=== PATIENT | male | born 1980 | race Caucasian/White ===

== ENCOUNTER 2017-01-16 11:58 | Emergency (ER) | payer OTHER ==
[2017-01-16 14:28] VITALS: BP 125/81
--- NOTE | 2017-01-16 14:36 | UC ---
Back Pain HPI - HPI Summary HPI Summary: complaint of lower back pain that started approx 1 year ago in the last few weeks pain has slowly increased the last 2 days pain has increased constant aching pain that radiates into buttocks any movement increases the pain in his lower back sitting lessens the pain has tired heat and icing without relief acetaminophen or ibuprofen without relief denies trauma denies fever and incontinence concerned that 30 pound weight gain since starting hypothyroidsm started levthyroxine but has gained weight in his torso - History of Current Complaint Chief Complaint: UCGeneralIllness Stated Complaint: LOWER BACK PAIN Time Seen by Provider: 01/16/17 14:20 Hx Obtained From: Patient - Allergies/Home Medications Allergies/Adverse Reactions: Allergies Allergy/AdvReac Type Severity Reaction Status Date / Time No Known Allergies Allergy Verified 01/16/17 14:20 Home Medications: Home Medications DULoxetine DR CAP* [Cymbalta CAP*] 60 mg PO DAILY 01/16/17 [History Confirmed ] Levothyroxine TAB* [Synthroid TAB*] 25 mcg PO DAILY 01/16/17 [History Confirmed 01/16/17] cloNIDine TAB* [Catapres 0.1 MG TAB*] 0.1 mg PO TID 01/16/17 [History Confirmed 01/16/17] PMH/Surg Hx/FS Hx/Imm Hx Previously Healthy: Yes Endocrine History Of: Reports: Thyroid Disease - Hypothyroidism Cardiovascular History Of: Reports: Hypertension GI/ History Of: Reports: Gastroesophageal Reflux Psychological History Of: Reports: Anxiety Other History Of: Hepatitis C - Surgical History Surgical History: None - Family History Known Family History: Negative: Cardiac Disease, Hypertension, Diabetes Family History: no known cardio vascular disorders in family - Social History Occupation: Unemployed Lives: With Family Alcohol Use: None Substance Use Type: None Substance Use Comment - Amount & 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 08/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 Smoking Status (MU): Heavy Every Day Tobacco Smoker Type: Cigarettes Amount Used/How Often: 1 1/2 PPD Have You Smoked in the Last Year: Yes Cessation Counseling: Patient Advised to Stop - Immunization History Most Recent Influenza Vaccination: Not the 2016/2016 Season Review of Systems Constitutional: Negative Skin: Negative Eyes: Negative ENT: Negative Respiratory: Negative Cardiovascular: Negative Gastrointestinal: Negative Genitourinary: Negative Motor: Negative Neurovascular: Negative Musculoskeletal: Other: - lower back pain Neurological: Negative Psychological: Negative All Other Systems Reviewed And Are Negative: Yes Physical Exam Triage Information Reviewed: Yes Appearance: No Pain Distress, Well-Nourished Vital Signs: Initial Vital Signs Temp 97.9 F 01/16/17 14:15 Pulse 84 01/16/17 14:15 Resp 16 01/16/17 14:15 BP 125/81 01/16/17 14:15 Pulse Ox 98 01/16/17 14:15 Vital Signs Reviewed: Yes Eyes: Positive: Conjunctiva Clear Neck: Positive: No Lymphadenopathy Respiratory: Positive: Lungs clear, Normal breath sounds, No respiratory distress Cardiovascular: Positive: RRR, No Murmur Abdomen Description: Positive: Nontender, Soft, Distended Bowel Sounds: Positive: Present Musculoskeletal: Positive: No Edema, Other: - full ROM paraspinal tenderness in lumbar area no pian with percussion of spine Neurological: Positive: Alert, Other: - DTR intact negative SLR Psychological Exam: Normal Skin Exam: Normal Back Pain Course/Dx - Course Course Of Treatment: exam completed. no red flags to warrant imaging. will refer to PT for further evaluation and treatment , NSAIDS only. currently taking suboxone -no muscle relaxre rx - Differential Dx/Diagnosis Differential Diagnosis/HQI/PQRI: Herniated Disc, Strain, Sprain Provider Diagnoses: lower back pain Discharge - Discharge Plan Condition: Stable Disposition: HOME Patient Education Materials: Low Back Strain (ED) Referrals: YISEL Pérez [Primary Care Provider] - Additional Instructions: Please call physical therapy for further evaluation and treatment. Take ibuprofen for fever or pain. Increase fluids and rest. Please review your discharge instructions. If your symptoms do not improve please call your primary care provider or return to urgent care. Treatment Recommendations: Limit activities and avoid strenuous physical activity completely. The more active you are, the longer it will take your back to feel better. Staying in bed is not good because it weakens muscles. Lie or sleep on a firm surface. Do not sleep on your stomach. Sleep on your side with a pillow between your knees, or on your back with a pillow under your knees. Avoid positions and movements that cause pain or make your pain worse. Mild heat or ice applied to the back can sometimes be helpful. Use for 15 to 30 minutes several times a day. Ice is usually most helpful during the first day or two after an injury, and heat may be helpful after that. If you use a heating pad it should always be on the lowest setting. If sitting for long periods of time, raise the hips slightly higher than the knees by placing a slender pillow under the hips. Always support the lower curve of your back with another pillow. If you have to stand a lot try to put one foot on a low stool. Change your position during the day by doing tasks both standing and sitting; take frequent breaks. Learn how to lift, reach, push, and pull correctly. Let your legs do most of the lifting. Lift by bending at the knees, rather than at the waist, and keep your back straight. Avoid heavy lifting.
[2017-01-16] MEDS ORDERED: Ketorolac INJ* 60 MG/2 ML VIAL IM ONE (14:52)
== END 2017-01-16 15:32 | disposition home or self-care (01) ==
LOC: UCCORT 11:58
DX: M54.5 Low back pain (principal); E03.9 Hypothyroidism, unspecified; I10 Essential (primary) hypertension; F17.210 Nicotine dependence, cigarettes, uncomplicated
CPT/HCPCS: 96372; 99212; G0463; J1885

== ENCOUNTER 2019-09-09 10:28 | Day surgery (SDC) | payer OTHER ==
[~2019-09-09 10:28] MED LIST: Buffered Lidocaine 1% SYRIN* 1 ML/SYRINGE INTRADERM ONE; Dexamethasone IV* 4 MG/ML 1 ML (4 MG) IV SLOW PU ONE; Famotidine IV* 10 MG/ML 2 ML (20 mg) IV ONE; Lactated Ringers 1000 ML Bag* 1,000 ML IV SCH
[2019-09-09] MEDS ORDERED: Famotidine IV* 10 MG/ML 2 ML (20 mg) ONE (10:43)
[2019-09-09] MEDS ORDERED: ceFAZolin 2 GM PREMIX in ORs 2 GM/50 ML BAG ONE (10:44)
[2019-09-09] MEDS ORDERED: Metoclopramide IV* 5 MG/ML 2 ML VIAL ONE (10:52)
[2019-09-09] MEDS ORDERED: Lidocaine 1% MPF* 2 ML VIAL ONE ×3 (12:55→12:58)
[2019-09-09] MEDS ORDERED: Betamethasone INJ* 6 MG/ML 5 ML VIAL (30 MG) ONE ×3 (12:56→12:58)
[2019-09-09] MEDS ORDERED: fentaNYL* 50 MCG/ML 2 ML VIAL (100 MCG VIAL) ONE (13:00)
[2019-09-09] MEDS ORDERED: Midazolam* 1 MG/ML 2 ML VIAL (2 MG) ONE (13:00)
[2019-09-09] MEDS ORDERED: Propofol* 10 MG/ML 20 ML BTL ONE (13:01)
[2019-09-09] MEDS ORDERED: Bupivacaine 0.25% SDV* 30 ML ONE (13:05)
[2019-09-09] MEDS ORDERED: Naloxone* 0.4 MG/ML 1 ML VIAL IV PRN (14:45)
[2019-09-09] MEDS ORDERED: fentaNYL* 50 MCG/ML 2 ML VIAL (100 MCG VIAL) IV PRN (14:45)
[2019-09-09] MEDS ORDERED: Ketorolac INJ* 30 MG/ML 1 ML VIAL IV PRN (14:45)
[2019-09-09] MEDS ORDERED: Ondansetron INJ* 2 MG/ML VIAL IV SCH (15:00)
[2019-09-09] MEDS ORDERED: Ondansetron INJ* 2 MG/ML VIAL ONE (15:05)
[2019-09-09] MEDS ORDERED: Ketorolac INJ* 30 MG/ML 1 ML VIAL ONE (15:05)
[2019-09-09 15:31] VITALS: BP 105/82
--- NOTE | 2019-09-09 21:43 | OP ---
DATE OF OPERATION: 09/09/19 [facility] DATE OF : 84 SURGEON: Salvador Looney MD [employer] INSTRUCTOR: MARLO Jean. An child center assistant was needed for the procedure to aid in positioning of the arm and retraction. ANESTHESIOLOGIST: Dr. Koch. ANESTHESIA: Local MAC. PRE-OP DIAGNOSES: 1. 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 2. Right ring finger proximal interphalangeal joint synovitis. 3. Right middle finger proximal interphalangeal joint synovitis. 4. Left wrist de Quervain's with tendon sheath nodule. 5. Left flexor carpi radialis tendinitis with tendon sheath nodule. POST-OP DIAGNOSES: 1. 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 2. Right ring finger proximal interphalangeal joint synovitis. 3. Right middle finger proximal interphalangeal joint synovitis. 4. Left wrist de Quervain's with tendon sheath nodule. 5. Left flexor carpi radialis tendinitis with tendon sheath nodule. OPERATIVE PROCEDURE: 1. Left middle finger excision of dorsal PIP joint rheumatoid nodules. 2. Left middle finger PIP joint corticosteroid injection. 3. Left de Quervain's release. 4. Left first dorsal compartment tendon sheath nodule excision. 5. Left flexor carpi radialis tendon debridement with tendon sheath nodule excision. 6. Right ring finger PIP joint steroid injection. 7. Right middle finger PIP joint steroid injection. INDICATIONS: Mr. Zee has aforementioned conditions. The nodules are quite large. He has synovitis. He is looking to see if he can get some relief and to get the nodules excised. I talked to him about risks including the risk of neurovascular injury and recurrence as well as the need for good medical management of this condition. He agrees and understands and wishes to proceed. ESTIMATED BLOOD LOSS: 2 mL. COMPLICATIONS: None. FINDINGS: See above and below. DESCRIPTION OF PROCEDURE: Mr. Zee was seen in the preoperative holding area. The correct site, side, and procedures were identified. We came back to the operating room. The arm was prepped and draped in the usual fashion and a time-out was performed. Before draping and after anesthetizing the left-sided operative areas, I did go over and inject first the right middle finger PIP joint with 1 mL of 1% lidocaine and 6 mg of betamethasone. I then injected the right ring finger PIP joint with 1 mL of 1% lidocaine and 6 mg of betamethasone. Band-Aids were applied to both injection sites. After we had our surgical time-out, I went ahead and made a curvilinear incision over the dorsum of the left middle finger PIP joint. Full-thickness flap was raised off the nodules. The extensor tendon was identified distal and proximal to that. I came in distally and excised the entirety of the rheumatoid nodule taking right off the extensor tendon. This was emanating between the central slip and the lateral band on both the radial and ulnar aspects. I went ahead and cleaned off that interval and did a little bit of a synovectomy in the joint. Once I had fully excised the nodules and cleaned up the joint, I irrigated out the wound, I placed a couple of a 4-0 PDS sutures in the space where the nodule had been between the central slip and the conjoined lateral band. The wound was irrigated out, skin was closed with 4-0 nylon suture. I then injected 1 mL of 1 % lidocaine and 6 mg of betamethasone into the left middle finger PIP joint. I then made a 2-cm transverse incision over the radial styloid. Dissection was carried down. Full-thickness flaps were raised off the tendon sheath. Ragnell retractors were placed. There was a large nodule emanating off the tendon sheath on the volar distal aspect. I went ahead and excised that and sent that off as a specimen. I then released the first dorsal compartment tendon sheath along the dorsal margin and release was completed distally and proximally with the tenotomy scissors. There was a little bit of tenosynovitic tissue around the tendons that was all excised. Lastly, I made a V-shaped incision and raised an ulnarly based flap off the distal FCR tendon sheath just near the area of the scaphoid tubercle. Dissection was carried down. Neurovascular structures were preserved. I placed retractors and I was able to isolate that large anterior FCR tendon sheath nodule. That was excised in its entirety. I went ahead and released the little bit of the sheath proximal and distal to that. Once I had fully excised that nodule and everything was looking good, I irrigated out the wound. I went ahead and placed a little bit of betamethasone around both the FCR tendon and the first dorsal compartment tendons. The wounds were closed with 4- 0 nylon. Everything was dressed with soft dressings. He was taken to the recovery room in stable condition. [id number]/[facility] #: [id number] NKECHI
== END 2019-09-09 15:25 | disposition home or self-care (01) ==
LOC: OREAST 10:28
PROVIDERS: ATTEND Orthopaedic Surgery Hand Surgery
DX: M06.342 Rheumatoid nodule, left hand (principal); M65.4 Radial styloid tenosynovitis [de Quervain]; M65.842 Other synovitis and tenosynovitis, left hand; M65.841 Other synovitis and tenosynovitis, right hand; M05.1 Rheumatoid lung disease with rheumatoid arthritis; I10 Essential (primary) hypertension; F17.210 Nicotine dependence, cigarettes, uncomplicated; E03.9 Hypothyroidism, unspecified; F41.8 Other specified anxiety disorders; E11.9 Type 2 diabetes mellitus without complications; Z79.84 Long term (current) use of oral hypoglycemic drugs; F10.11 Alcohol abuse, in remission
CPT/HCPCS: 88304; J0690; J0702; J1885; J2250; J2405; J2704; J2765; J3010; J3490

== ENCOUNTER 2019-11-15 11:37 | Day surgery (SDC) | payer OTHER ==
[2019-11-15] MEDS ORDERED: ceFAZolin 2 GM in NS PREMIX(*) 2 GM/100 ML BAG IVPB ONE (13:47)
[2019-11-15] MEDS ORDERED: Bupivacaine 0.25% SDV* 30 ML ONE (13:51)
[2019-11-15] MEDS ORDERED: Propofol* 10 MG/ML 20 ML BTL ONE (13:52)
[2019-11-15] MEDS ORDERED: Ketorolac INJ* 30 MG/ML 1 ML VIAL ONE (13:52)
[2019-11-15] MEDS ORDERED: Midazolam* 1 MG/ML 5 ML VIAL (5 MG) ONE (13:55)
[2019-11-15] MEDS ORDERED: Ondansetron INJ* 2 MG/ML VIAL IV PRN (14:08)
[2019-11-15] MEDS ORDERED: Acetaminophen IV 1GM/100ML * 1,000 MG/100 ML VIAL IVPB ONE ×2 (14:08→14:39)
[2019-11-15] MEDS ORDERED: Naloxone* 0.4 MG/ML 1 ML VIAL IV PRN ×2 (14:08→14:23)
[2019-11-15 15:29] VITALS: BP 130/88
--- NOTE | 2019-11-15 22:57 | OP ---
DATE OF OPERATION: 11/15/19 [facility] DATE OF : 84 SURGEON: Salvador Looney M.D. MECHANICAL REPAIR WORKER: MARLO Jean ANESTHESIOLOGIST: Dr. Brar. ANESTHESIA: Local MAC. PRE-OP DIAGNOSIS: Left middle finger postoperative draining wound. POST-OP DIAGNOSIS: Left middle finger postoperative draining wound. OPERATIVE PROCEDURE: Irrigation and debridement of infected left middle finger surgical wound with excision of sinus tract. INDICATIONS: Mr. Zee underwent the aforementioned surgery. All the wounds have healed up good except for the left middle finger wound over the dorsum of the PIP joint. I saw him back once for his immediate postop visit and then he missed an appointment, then he came back to see me last Friday and he developed a chronically draining wound. He does not have any evidence of a joint infection. He has full range of motion of the joint with minimal pain, but the wound has a little bit of seropurulent drainage from the central aspect and it looked like he has a sinus tract there. We talked him about treatment options, risks and benefits. I told him that I thought we had to clean it up and reclose the wound and start him on some antibiotics. He agrees and wishes to proceed. EBL: 2 mL. COMPLICATIONS: None. FINDINGS: See above and below. DESCRIPTION OF PROCEDURE: Mr. Zee was seen in the preoperative holding area. The correct site, side, and procedures were identified. We came back to the operating room where a digital block was performed with 0.25% plain Marcaine. The arm was then prepped and draped in the usual fashion and a time- out was performed. I went ahead and reopened his prior wound there proximally and distally, and then I ellipsed out the sinus tract. The skin portion was removed. I then used a 69 Springhill blade to marginally excise the sinus tract all the way down to the bone. It came down deep to the extensor tendon and was sitting right on the dorsum of the middle phalanx there. I took some time that I went ahead and cleaned up the area around the sinus tract. I used a Springhill blade followed by the curettes and rongeur. Once that everything completely cleaned and looked really good, there was not any evidence of continuity down into the joint. A small little arthrotomy was made just to make sure and the joint looked fine. The wound was irrigated out. The skin was closed with 4-0 nylon suture. Wound was dressed. He was placed in an AlumaFoam splint to hold that PIP joint in extension while the wound heals up. Tourniquet was deflated. The finger pinked up immediately. He was taken to the recovery room in stable condition. [id number]/[facility] [place] #: [id number] NKCEHI
== END 2019-11-15 15:32 | disposition home or self-care (01) ==
LOC: OR 11:37
PROVIDERS: ATTEND Orthopaedic Surgery Hand Surgery
DX: T81.41XA Infection following a procedure, superficial incisional surgical site, initial encounter (principal); I10 Essential (primary) hypertension; M19.90 Unspecified osteoarthritis, unspecified site; E11.9 Type 2 diabetes mellitus without complications; Z79.84 Long term (current) use of oral hypoglycemic drugs; F41.8 Other specified anxiety disorders; F17.210 Nicotine dependence, cigarettes, uncomplicated; F10.21 Alcohol dependence, in remission; F19.11 Other psychoactive substance abuse, in remission
CPT/HCPCS: 87070; 87073; 87077; 87205; J0690; J1885; J2250; J2704; J3490